=== PATIENT | female | born 1965 | race Caucasian/White ===

== ENCOUNTER 2021-12-09 22:42 | Emergency (ER) | payer SELFPAY ==
[~2021-12-09] VITALS: Ht 152.4 cm; Wt 62.0 kg
[2021-12-09 22:58] VITALS: BP 107/63
[2021-12-09] MEDS ORDERED: IBUPROFEN 600MG TABLET PO ONE (23:45)
== END 2021-12-10 07:52 | disposition left against medical advice (07) ==
LOC: ER 22:42
DX: Z53.21 Procedure and treatment not carried out due to patient leaving prior to being seen by health care provider (principal)